=== PATIENT | male | born 1945 | race Caucasian/White ===

== ENCOUNTER 2019-06-12 16:39 | Inpatient (IN) | payer OTHER, MEDICARE ==
[~2019-06-12] VITALS: Ht 188 cm; Wt 113.7 kg
[2019-06-12] VITALS (7 sets, daily range): BP systolic 80–108; BP diastolic 23–58
[2019-06-12] MEDS ORDERED: SODIUM CHLORIDE 0.9% 1,000 ML IV ONE ×2 (17:12)
[2019-06-12] MEDS ORDERED: PANTOPRAZOLE 80 MG in SODIUM CHL 0.9% 60 ML IV ONE (17:15)
[2019-06-12 18:22] LABS: Basophils # (auto) 0.1 uL; Basophils % (auto) 0.7 % (0.0-2.0); Lymphocytes # (auto) 1.8 uL; Monocytes # (auto) 1.6 uL; Neutrophils % (auto) 80.3 % (37.0-80.0)
[2019-06-12 18:24] LABS: Eosinophils # (auto) 0.1 uL; Eosinophils % (auto) 0.3 % (0.0-7.0); Hematocrit 14.1 % (41.0-53.0); Lymphocytes % (auto) 9.7 % (10.0-50.0); Mean Corpuscular Hemoglobin 22.6 pg (28.0-32.0); Mean Corpuscular Hgb Conc. 29.4 g/dL (32.0-36.0); Mean Corpuscular Volume 76.9 fL (80.0-100.0); Neutrophils # (auto) 14.5 uL; Nucleated Red Blood Cells % 0.3 %; Platelet Count (auto) 712 10^3/uL (140-450); Red Blood Cells 1.83 10^6/uL (4.5-5.90); White Blood Cell 18.1 10^3/uL (4.4-10.8)
[2019-06-12] MEDS ORDERED: ETOMIDATE (2MG/ML) 20ML VIAL IV ONE ×2 (18:27→19:30)
[2019-06-12] MEDS ORDERED: SUCCINYLCHOLINE CHLORIDE 20 MG/ML 10ML VIAL IV ONE ×2 (18:27→19:30)
[2019-06-12 18:28] LABS: Red Cell Distribution Width 21.9 % (11.8-14.3)
[2019-06-12] MEDS ORDERED: MIDAZOLAM DRIP 50 mg/50mL 50 ML IV ONE (18:28)
[2019-06-12 18:31] LABS: Hemoglobin 4.1 g/dL (13.5-17.5)
[2019-06-12] MEDS: MIDAZOLAM DRIP 50 mg/50mL 50 ML IV SCH (18:33)
[2019-06-12 18:40] LABS: Anion Gap 13 (5-15); Blood Urea Nitrogen 36 mg/dL (7-18); Calcium 7.3 mg/dL (8.5-10.1); Carbon Dioxide 14 mmol/L (21-32); Chloride 105 mmol/L (98-107); Glucose 281 mg/dL (74-106); Sodium 132 mmol/L (136-145)
[2019-06-12 18:41] LABS: Alanine Aminotransferase 29 U/L (16-61); Aspartate Aminotransferase 28 U/L (15-37); BUN/Creatinine Ratio 17.1; GFR African American 40 mL/min; GFR Non-African American 33 mL/min
[2019-06-12 18:43] LABS: Partial Thromboplastin Time 39.9 sec (23.64-32.05)
[2019-06-12 18:44] LABS: Alkaline Phosphatase 114 U/L (45-117); Bilirubin, Total 0.2 mg/dL (0.2-1.0); Total Protein 6.3 g/dL (6.4-8.2)
[2019-06-12] MEDS ORDERED: PROPOFOL 100 ML IV ONE ×2 (18:47→18:48)
[2019-06-12 18:48] LABS: Lactic Acid w/Reflex 6.2 mmol/L (0.4-2.0)
[2019-06-12] MEDS: PROPOFOL 100 ML IV SCH (18:52)
[2019-06-12 18:55] LABS: INR 4.4 (0.9-1.15)
[2019-06-12] MEDS ORDERED: OCTREOTIDE ACETATE 100 MCG in SODIUM CHL 0.9% 50 ML IV ONE (19:00)
[2019-06-12] MEDS: fentaNYL Drip 2500mCg/250mlNS 250 ML IV SCH (19:15)
[2019-06-12 19:25] LABS: Potassium 5.9 mmol/L (3.5-5.1)
[2019-06-12] MEDS ORDERED: DEXTROSE (50%) 50ML SYRG IV ONE (19:30)
[2019-06-12] MEDS ORDERED: SODIUM BICARBONATE 8.4 % INJ 50ML VIAL IV ONE (19:30)
[2019-06-12] MEDS ORDERED: MORPHINE SULF INJ 2 MG/ML SYRINGE 1ML IV PRN ×2 (19:30→19:45)
[2019-06-12] MEDS ORDERED: ALBUTEROL SULF 2.5 MG/0.5ML(0.5%) NEB SOLN NEB ONE (19:30)
[2019-06-12] MEDS ORDERED: NITROGLYCERIN 0.4 MG SL TAB SL PRN (19:30)
[2019-06-12] MEDS ORDERED: InsuLIN REG 1unit/0.01ml Soln (100units/ml) IV ONE (19:30)
[2019-06-12] MEDS ORDERED: CALCIUM GLUC 4.65meq/50ml D5AE 50 ML IV ONE (19:30)
[2019-06-12] MEDS ORDERED: VANCOMYCIN PER PHARMACY 0 MG IV SCH (19:45)
[2019-06-12] MEDS ORDERED: NOREPINEPHRINE 8 MG/250ML KIT 250 ML IV ONE (20:27)
[2019-06-12] MEDS: NOREPINEPHRINE 8 MG/250ML KIT 250 ML IV SCH (20:30)
[2019-06-12] MEDS: IPRATROPIUM BROM 0.5 MG/2.5ML INH SOL NEB SCH (20:30)
[2019-06-12] MEDS: ALBUTEROL SULF 2.5 MG/0.5ML(0.5%) NEB SOLN NEB SCH (20:30)
[2019-06-12] MEDS ORDERED: VANCOMYCIN 1,500 MG in D5W 5% 250 ML IV ONE (20:30)
[2019-06-12] MEDS: SODIUM BICARBONATE 50ML VIAL 50 ML in SOD CHL 0.45% 1,000 ML IV SCH (21:00)
[2019-06-12] MEDS: OCTREOTIDE ACETATE 500 MCG in SODIUM CHL 0.9% 99 ML IV SCH (21:30)
[2019-06-12 23:27] LABS: BUN/Creatinine Ratio 15.9; Calcium 7.1 mg/dL (8.5-10.1)
[2019-06-12 23:41] LABS: Potassium 6.8 mmol/L (3.5-5.1)
[2019-06-13] VITALS (57 sets, daily range): BP systolic 83–134; BP diastolic 33–69
[2019-06-13] MEDS ORDERED: SODIUM ZIRCONIUM CYCL 10 GM PAK PO ONE ×5 (00:15→23:30)
[2019-06-13] MEDS ORDERED: InsuLIN REG 1unit/0.01ml Soln (100units/ml) IV ONE ×4 (00:15→23:30)
[2019-06-13] MEDS ORDERED: DEXTROSE (50%) 50ML SYRG IV ONE ×2 (00:15→23:30)
[2019-06-13] MEDS: IPRATROPIUM BROM 0.5 MG/2.5ML INH SOL NEB SCH ×4 (00:43→18:22)
[2019-06-13] MEDS: ALBUTEROL SULF 2.5 MG/0.5ML(0.5%) NEB SOLN NEB SCH ×4 (00:43→18:22)
[2019-06-13] MEDS: OCTREOTIDE ACETATE 500 MCG in SODIUM CHL 0.9% 99 ML IV SCH (05:19)
[2019-06-13 05:39] LABS: Basophils # (auto) 0.1 uL; Eosinophils # (auto) 0 uL; Neutrophils # (auto) 13.4 uL
[2019-06-13 05:42] LABS: Basophils % (auto) 0.4 % (0.0-2.0); Eosinophils % (auto) 0.1 % (0.0-7.0); Hematocrit 15.8 % (41.0-53.0); Lymphocytes # (auto) 3.1 uL; Lymphocytes % (auto) 17.4 % (10.0-50.0); Mean Corpuscular Hemoglobin 25.6 pg (28.0-32.0); Mean Corpuscular Hgb Conc. 32.4 g/dL (32.0-36.0); Mean Corpuscular Volume 79.2 fL (80.0-100.0); Monocytes # (auto) 1.4 uL; Monocytes % (auto) 7.7 % (0.0-12.0); Neutrophils % (auto) 74.4 % (37.0-80.0); Nucleated Red Blood Cells % 0.2 %; Platelet Count (auto) 504 10^3/uL (140-450); Red Cell Distribution Width 19.9 % (11.8-14.3)
[2019-06-13 05:54] LABS: Hemoglobin 5.1 g/dL (13.5-17.5); INR 2.44 (0.9-1.15); Partial Thromboplastin Time 34.5 sec (23.64-32.05)
[2019-06-13] MEDS: SODIUM BICARBONATE 50ML VIAL 50 ML in SOD CHL 0.45% 1,000 ML IV SCH ×3 (06:10→22:02)
[2019-06-13 06:15] LABS: BUN/Creatinine Ratio 17.2; Calcium 6.8 mg/dL (8.5-10.1); Potassium 5.4 mmol/L (3.5-5.1)
[2019-06-13] MEDS ORDERED: SODIUM BICARBONATE 8.4 % INJ 50ML VIAL IV ONE ×2 (06:15→23:30)
[2019-06-13] MEDS ORDERED: DEXTROSE (50%) 50ML SYRG IV PRN ×2 (07:15→16:30)
[2019-06-13] MEDS ORDERED: ALBUTEROL SULF 2.5 MG/0.5ML(0.5%) NEB SOLN NEB ONE ×2 (07:15→16:30)
--- NOTE | 2019-06-13 07:43 | NUR ---
Respiratory note: VT HAS BEEN INCREASED TO 600 PER LICENSED SURVEYOR CORBY. NEW VENT SETTINGS: RR 20, VT 600, PEEP 5, AND 30% FIO2.
[2019-06-13] MEDS: InsuLIN REG 1unit/0.01ml Soln (100units/ml) SC SCH ×4 (08:00→20:00)
[2019-06-13] MEDS: ACCU-CHEK COMFORT CURVE STRIP VI SCH ×3 (08:00→20:00)
[2019-06-13] MEDS: cefTRIAXone 1GM/50ML D5W 50 ML IV SCH (09:08)
[2019-06-13] MEDS: LINEZOLID 600MG/300ML 300 ML IV SCH ×2 (09:30→21:28)
[2019-06-13] MEDS ORDERED: PANTOPRAZOLE 80 MG in SODIUM CHL 0.9% 60 ML IV ONE (09:45)
[2019-06-13] MEDS: AZITHROMYCIN 500MG/ 250ML 250 ML IV SCH (10:17)
[2019-06-13 10:51] LABS: Urine Bacteria FEW /hpf (None Seen); Urine Blood 2+ /uL (Negative); Urine Hyaline Cast FEW /lpf (0 - 2); Urine Mucus FEW (None Seen); Urine Specific Gravity 1.016 (1.001-1.035); Urine WBC 5 /hpf (0 - 3)
[2019-06-13 11:04] LABS: Creatinine, Urine 90 mg/dL (30.0-125.0); Sodium Urine 30 mmol/L (40-220)
--- NOTE | 2019-06-13 12:40 | NUR ---
Respiratory note: PT TRANSPORTED TO ICU BED 102 WITHOUT INCIDENT. ETT REMAINED IN PLACE AND SECURED WITH A PAMELA. PT WAS VENTILATED VIA BMV WHILE BEING MONITORED WITH CONTINUOUS POX AND GRANULIZING MACHINE OPERATOR. PT PLACED BACK ONTO PREVIOUS VENT SETTINGS UPON ARRIVAL TO ICU 102.
[2019-06-13] MEDS: PANTOPRAZOLE 80 MG in SODIUM CHL 0.9% 60 ML IV SCH ×2 (12:57→19:45)
[2019-06-13 15:09] LABS: Basophils # (auto) 0.1 uL; Eosinophils # (auto) 0 uL; Eosinophils % (auto) 0.3 % (0.0-7.0); Monocytes # (auto) 1.3 uL; Nucleated Red Blood Cells % 0.1 %
[2019-06-13 15:10] LABS: Basophils % (auto) 0.5 % (0.0-2.0); Hematocrit 20.1 % (41.0-53.0); Lymphocytes # (auto) 2.1 uL; Lymphocytes % (auto) 11.8 % (10.0-50.0); Mean Corpuscular Hemoglobin 26.2 pg (28.0-32.0); Mean Corpuscular Hgb Conc. 33.2 g/dL (32.0-36.0); Mean Corpuscular Volume 78.9 fL (80.0-100.0); Monocytes % (auto) 7.2 % (0.0-12.0); Neutrophils # (auto) 14.6 uL; Neutrophils % (auto) 80.2 % (37.0-80.0); Platelet Count (auto) 503 10^3/uL (140-450); Red Blood Cells 2.55 10^6/uL (4.5-5.90); Red Cell Distribution Width 19.1 % (11.8-14.3); White Blood Cell 18.2 10^3/uL (4.4-10.8)
[2019-06-13 15:23] LABS: Hemoglobin 6.7 g/dL (13.5-17.5)
[2019-06-13 15:29] LABS: BUN/Creatinine Ratio 19.6; Calcium 6.6 mg/dL (8.5-10.1)
[2019-06-13] MEDS: PANTOPRAZOLE 40 MG/10 ML VIAL INJ IV SCH ×2 (15:30→22:00)
[2019-06-13] MEDS: MIDAZOLAM DRIP 50 mg/50mL 50 ML IV SCH ×3 (15:39→23:08)
[2019-06-13 15:45] LABS: Bilirubin, Total 1.2 mg/dL (0.2-1.0); Total Protein 5.5 g/dL (6.4-8.2)
[2019-06-13] MEDS: NOREPINEPHRINE 8 MG/250ML KIT 250 ML IV SCH ×2 (15:48→22:04)
[2019-06-13 16:05] LABS: Potassium 5.8 mmol/L (3.5-5.1)
[2019-06-13] MEDS ORDERED: CALCIUM GLUC 4.65meq/50ml D5AE 50 ML IV ONE ×2 (16:30→23:30)
[2019-06-13] MEDS: PROPOFOL 100 ML IV SCH (19:40)
[2019-06-13] MEDS: fentaNYL Drip 2500mCg/250mlNS 250 ML IV SCH (19:40)
--- NOTE | 2019-06-13 20:00 | NUR ---
ADMITTED WITH RESPIRATORY FAILURE, SEPSIS, GI BLEED , FAILURE TO THRIVE. PLACED IN CONTACT ISOLATION FOR VRE URINE. PLAN: NOT TO CPAP UNTIL THE ILEUS IS RESOLVED. PLACED BACK ON DIPRIVAN AFTER BEING OFF SEDATION FOR 2 DAYS. PATIENT IS ABLE TO GRIMACE AND MOVE EXTREMITIES, BUT IS LESS ACTIVE. SBP IS MORE UNDER CONTROL. ETT TO VENTILATOR. NO VENT CHANGES TODAY. OGT TO LIS. SMALL AMOUNT OF GOLD SECRETIONS. PATENCY CHECKED. FLUSHED OGT. + WEAK COUGH. SMALL AMOUNT OF CLOUDY SECRETIONS FROM THE ETT. LUNGS CLEAR. ABDOMEN ROUND AND SOFT. MARTÍNEZ IN PLACE. DRAINING CLEAR YELLOW LIQUID IV ACCESS IS A RIJ TRIPLE LUMEN CATHETER. SITE IS CLEAN AND DRY WITH A CURRENT DRESSING . TEMP 99.2. ATRIAL FIB CONTROLLED RATE. SBP 120-130. HAS 3+ PITTING EDEMA IN ARMS AND LEGS. MULTIPLE SKIN ISSUES. HEELS OFF BED. MAINTENANCE FLUID AT 50CC/HR. TPN ( 2ND DAY) AT 60CC/HR . AMIODARONE DRIP .5. NO TITRATION . SEDATION: DIPRIVAN. RECEIVED K PHOS AND MAGNESIUM REPLACEMENT TODAY.
--- NOTE | 2019-06-13 20:00 | NUR ---
ADMITTED WITH GI BLEED, HYPERKALEMIA, HYPOTENSION, LOW NA BICARB. 5TH UPC GOING. LAST HG 6.7. PREVIOUSLY RECIEVED 2UNITS OF FFP. ETT TO VENTILATOR. OGT TO LIS. APPROXIMATELY 100CC OF BROWN LIQUID IN CONTAINER. ORAL CARE SHOWED OLD BROWN SECRETIONS. ETT SECRETIONS : THICK CLOUDY, SMALL AMOUNT. PRAFUL . BOTH EYES HAVE RELAXED LATERALLY. HAS A RIJ TLC WITH CURRENT DRESSING. PROTONIX AND OCTREOTIDE HAVE DISCONTINUED. LUNGS CLEAR. ABDOMEN ROUND AND SOFT. MARTÍNEZ IN PLACE DRAINING CLEAR YELLOW LIQUID TO DOWN DRAIN BAG. OBESE. ALL EXTREMITIES ARE EQUALLY WARM. PULSES PALPABLE. ACCUCHECK 372. HAS A BICARB DRIP AT 100CC/HR. SEDATION: FENTANYL, DIPRIVAN AND VERSED. VASOPRESSOR: LEVOPHED.
--- NOTE | 2019-06-13 20:01 | NUR ---
PREVIOUS NOTE: MISTAKEN ENTRY
--- NOTE | 2019-06-13 21:00 | NUR ---
ZYVOX GOING IN A SEPERATE LINE.
--- NOTE | 2019-06-13 22:00 | NUR ---
FIO2 50%
--- NOTE | 2019-06-13 22:00 | NUR ---
REPOSITIONED. ORAL CARE. SUCTIONED ETT FOR SMALL AMOUNT OF CLOUDY SECRETIONS. SACRAL FOLD RED. NO HEEL BREAKDOWN. LEFT AC IV LEAKING. REMOVED IV. 2200 REPEAT LABS SENT.
[2019-06-13 22:20] LABS: Basophils # (auto) 0.1 uL; Eosinophils # (auto) 0.1 uL; Mean Corpuscular Volume 79.2 fL (80.0-100.0); Nucleated Red Blood Cells % 0.1 %
[2019-06-13 22:22] LABS: Basophils % (auto) 0.5 % (0.0-2.0); Eosinophils % (auto) 0.5 % (0.0-7.0); Hematocrit 21.9 % (41.0-53.0); Hemoglobin 7.3 g/dL (13.5-17.5); Lymphocytes # (auto) 1.7 uL; Lymphocytes % (auto) 8.8 % (10.0-50.0); Mean Corpuscular Hemoglobin 26.4 pg (28.0-32.0); Mean Corpuscular Hgb Conc. 33.4 g/dL (32.0-36.0); Monocytes # (auto) 1.3 uL; Monocytes % (auto) 6.8 % (0.0-12.0); Neutrophils % (auto) 83.4 % (37.0-80.0); Platelet Count (auto) 519 10^3/uL (140-450); Red Blood Cells 2.77 10^6/uL (4.5-5.90); Red Cell Distribution Width 19.1 % (11.8-14.3); White Blood Cell 19.2 10^3/uL (4.4-10.8)
[2019-06-13 22:38] LABS: BUN/Creatinine Ratio 18.8; Calcium 7.1 mg/dL (8.5-10.1)
[2019-06-13 22:42] LABS: Potassium 5.7 mmol/L (3.5-5.1)
--- NOTE | 2019-06-13 22:47 | NUR ---
temp 100.4 rectal. ice bag to bag of neck
--- NOTE | 2019-06-13 22:50 | NUR ---
CALL PLACED TO HOSPITALIST TO REPORT THE 2199 LAB RESULTS. K 5.7, HG 7.3 CREATININE AND BUN ARE DECREASING GRADUALLY.
--- NOTE | 2019-06-13 23:19 | NUR ---
ASHLEY HINES RETURNED THE CALL . ORDERS RECEIVED . D50, INSULIN, CA GLUC, NA BICARB AND LOKELMA TO BE GIVEN.
[2019-06-14] VITALS (85 sets, daily range): BP systolic 90–147; BP diastolic 43–66
--- NOTE | 2019-06-14 | NUR ---
COCKTAIL OF INSULIN, D50, CALCIUM GLUCONATED, NA BICARB AND LOKELMA GIVEN. AM LABS TO CHECK LEVELS. REPOSITIONED TO BACK. NOT MOVING EXTREMITIES. NO COUGH OR GAG. PUPILS SLUGGISH AND BOTH EYES H AVE DEVIATED LATERALLY. ABDOMEN SOFT. DARK BROWN THROUGH NGT IN SMALL AMOUNTS. IVS PATENT. MARTÍNEZ IN PLACE AND DRAINING CLEAR YELLOW LIQUID. SINUS TACHYCARDIA. FOLLOWING THE VENTILATOR RATE OF 20. TEMP IS DOWN TO 100 RECTALLY. FIO2 50%
[2019-06-14] MEDS: ACCU-CHEK COMFORT CURVE STRIP VI SCH ×7 (00:09→20:23)
[2019-06-14] MEDS: IPRATROPIUM BROM 0.5 MG/2.5ML INH SOL NEB SCH ×4 (00:15→18:17)
[2019-06-14] MEDS: ALBUTEROL SULF 2.5 MG/0.5ML(0.5%) NEB SOLN NEB SCH ×4 (00:15→18:17)
[2019-06-14] MEDS: InsuLIN REG 1unit/0.01ml Soln (100units/ml) SC SCH ×6 (00:22→20:23)
[2019-06-14] MEDS: PROPOFOL 100 ML IV SCH ×3 (01:52→16:00)
[2019-06-14] MEDS: NOREPINEPHRINE 8 MG/250ML KIT 250 ML IV SCH ×2 (01:53→08:26)
[2019-06-14] MEDS: MIDAZOLAM DRIP 50 mg/50mL 50 ML IV SCH ×3 (01:53→11:10)
--- NOTE | 2019-06-14 03:00 | NUR ---
CHG BATH DONE
--- NOTE | 2019-06-14 04:00 | NUR ---
REPOSITIONED TO BACK. LUNGS CLEAR. NSR 99-105 SINUS TACHY. GOOD URINE OUTPUT.
[2019-06-14 04:31] LABS: Hemoglobin 7.5 g/dL (13.5-17.5); Mean Corpuscular Hemoglobin 26.9 pg (28.0-32.0)
[2019-06-14 04:32] LABS: Hematocrit 21.8 % (41.0-53.0); Mean Corpuscular Hgb Conc. 34.1 g/dL (32.0-36.0); Mean Corpuscular Volume 78.7 fL (80.0-100.0); Platelet Count (auto) 542 10^3/uL (140-450); Red Blood Cells 2.77 10^6/uL (4.5-5.90); Red Cell Distribution Width 19.4 % (11.8-14.3); White Blood Cell 18.7 10^3/uL (4.4-10.8)
[2019-06-14 04:45] LABS: Basophils % (manual) 0 (0.0-2.0); Blast Cells 0; Eosinophils % (manual) 0 (0-7); Myelocytes % 0; Promyelocytes % 0; Reactive Lymphocytes 0
[2019-06-14 04:51] LABS: BUN/Creatinine Ratio 19.3; Calcium 7.6 mg/dL (8.5-10.1); Potassium 5.1 mmol/L (3.5-5.1)
[2019-06-14 04:53] LABS: INR 1.34 (0.9-1.15); Partial Thromboplastin Time 28.2 sec (23.64-32.05)
--- NOTE | 2019-06-14 06:32 | NUR ---
TITRATING LEVOPHED DOWN
--- NOTE | 2019-06-14 07:30 | NUR ---
REPORT REPORT RECEIVED FROM MARNIE RNREY. BEDSIDE CHECK DONE.
--- NOTE | 2019-06-14 07:52 | NUR ---
ASSESSMENT PT RESTING IN BED , SEDATED AND ON THE VENTILATOR. NO SPONTANEOUS MOVEMENT NOTED BUT DOES WITHDRAW TO PAINFUL STIMULI. VENT SETTINGS: 8 FR ETT/26 AT THE LIP, AC 20, TV 600, 30% FIO2 AND PEEP OF 5. LUNGS CLEAR THROUGHOUT. SUCTIONED FOR SMALL AMOUNT OF THIN CLEAR FLUID ORALLY AND ETT. TELE ATRIAL FIB WITH OCC PACED BEATS, APPROX 82 , WITH BBB AND ELEVATED ST IN LEADS II, III, AVF AND V. PALPABLE PULSES TO ALL EXTREMITIES. SCDS TO BLE. ABD SOFT WITH HYPOACTIVE BOWEL SOUNDS. OGT WITH PLACEMENT VERIFIED AND TO LIS. LT OSEGUERA FLUID DRAINING. . MARTÍNEZ CATHETER DRAINING CLEAR YELLOW URINE. TURNED FOR COMFORT TO HIS RIGHT SIDE. UPPER INTRAGLUTEAL FOLD WITH DARK RED AREA SURROUNDED BY PINK, SLIGHTLY PEELING SKIN. APPEARS TO BE A SDTI. CONTINUE TO MONITOR.
[2019-06-14 08:23] LABS: Band Neutrophils % (manual) 8; Lymphocytes % (manual) 9 (10.0-50.0); Metamyelocytes % 1; Monocytes % (manual) 4 (0-12)
[2019-06-14] MEDS: SODIUM CHLORIDE 0.9% 1,000 ML IV SCH ×2 (08:34→21:20)
[2019-06-14] MEDS: cefTRIAXone 1GM/50ML D5W 50 ML IV SCH (08:41)
[2019-06-14] MEDS ORDERED: DEXTROSE (50%) 50ML SYRG IV PRN (08:45)
--- NOTE | 2019-06-14 09:00 | NUR ---
SEDATION VACATION WILL NOT TOTALLY WAKE PT HE MAY HAVE EGD THIS AM Addendum: 06/14/19 at 1357 by Yamileth Leslie RN Amended: Links added.
--- NOTE | 2019-06-14 09:30 | NUR ---
MD/PHONE SPOKE WITH DR VERNON , BY PHONE, AND UPDATED HIM ON THE PT'S CURRENT CONDITION INCLUDING MOST RECENT LABS. MD ORDERING FOR EGD TODAY. HE WILL CONTACT OR TO ARRANGE.
--- NOTE | 2019-06-14 09:35 | NUR ---
PT'S AND DAUGHTER AT THE BEDSIDE , UPDATED ON THE PT'S CURRENT CONDITION AND LABS AND ALSO DR VERNON PLANNING FOR EGD.
[2019-06-14] MEDS: PANTOPRAZOLE 40 MG/10 ML VIAL INJ IV SCH ×2 (09:59→21:57)
[2019-06-14] MEDS: LINEZOLID 600MG/300ML 300 ML IV SCH ×2 (10:00→21:05)
[2019-06-14] MEDS ORDERED: EPINEPHrine HCL 1 MG/10 ML SYRG ONE (10:25)
--- NOTE | 2019-06-14 11:45 | NUR ---
EGD COMPLETED AND PER DR VERNON: EGD SHOWED A SMALL ULCER IN THE JEJUNUM, NOT ACTIVELY BLEEDING. HE DOES WANT THE NGT RE-INSERTED.
[2019-06-14] MEDS: AZITHROMYCIN 500MG/ 250ML 250 ML IV SCH (12:09)
--- NOTE | 2019-06-14 12:15 | NUR ---
NGT RE-INSERTED ORALLY , BY HOME WHITTAKER. TOLERATED WELL BY PT. Addendum: 06/14/19 at 1340 by Yamileth Leslie RN ACCUCHECK OF 391 AND PT GIVEN 20 UNITS REGULAR INSULIN SQ.
--- NOTE | 2019-06-14 13:29 | NUR ---
FAMILY LEAVING FOR NOW AND WANT TO BE CALLED IF ANY OTHER MDS COME IN.
--- NOTE | 2019-06-14 14:35 | NUR ---
WOUND CARE NOTE: Wound care consult received from nursing. Patient is a 74 yo male admitted for acute respiratory failure. Patient with a history of diabetes, hypertension, chronic anemia, peripheral neuropathy and peripheral arterial disease. Patient is currently intubated and sedated. Patient with no signs or symptoms of pain. Last Fransico score is 10. Patient seen with bedside RNYamileth. Reviewed photos taken by nursing on admission. Patient noted to have a pressure injury to coccyx/sacrum area measuring 2x2 cm and is consistent with DTI. Deep purple/maroon color and intact skin. No other wounds noted. RECOMMENDATIONS: Dietary consult; Turn q2hrs; Nursing to cleanse sacrum/coccyx wound with mild soap and water, pat dry, apply ZGUARD BID/PRN soiling, cover with sacral OPTIFOAM GENTLE dressing; wound care team to follow. Addendum: 06/14/19 at 1530 by MELQUIADES LEAL RN Amended: Links added.
--- NOTE | 2019-06-14 15:31 | NUR ---
PT SEEN BY DR AYERS. CONSULT ORDERED WITH DR GAYTAN.
--- NOTE | 2019-06-14 17:00 | NUR ---
PT SEEN AND EXAMINED BY DR GAYTAN.
--- NOTE | 2019-06-14 19:30 | NUR ---
REPORT GIVEN TO STEM ROLLER RNREY.
--- NOTE | 2019-06-14 20:00 | NUR ---
ADMITTED ON 06/12/2019 WITH RESPIRATORY FAILURE, GI BLEED, HG OR 4.1 AND HYPOTENSION. HAS RECEIVED A TOTAL OF 5 UPC AND 2 FFP FOR ELEVATED COAGULATION TESTS. NOT MOVING. NEGATIVE BLINK, COUGH OR GAG. LUNGS COARSE. SUCTIONING A LARGE AMOUNT OF CREAMY SECRETIONS FROM THE ETT. RIJ TLC WITH CURRENT DRESSING AND BIOPATCH. ABDOMEN SOFT AND ROUND. NO BM TONIGHT. MARTÍNEZ IN PLACE. MARTÍNEZ DRAINING AN ADEQUATE AMOUNT OF YELLOW LIQUID WITH SEDIMENT. SACRAL DTI. BICARB DRIP DC'D TODAY. SEDATION : FENTANYL AND VERSED. DECREASING THOSE TONIGHT. LEVOPHED: DECREASING. OGT DRAINING COFFEE GROUND FLUID. IT IS SO THICK, I HAVE HAD TO LAVAGE SEVERAL TIMES TO KEEP IT FLOWING. SINUS RHYTHM. NO ECTOPY. DCD THE RIGHT HAND IV, IT WAS LEAKING. HAS A RIGHT FOREARM IV AND A RIGHT IJ TLC ALL WITH CURRENT DRESSING. SITES SHOW NO REDNESS OR SWELLING
[2019-06-14] MEDS: fentaNYL Drip 2500mCg/250mlNS 250 ML IV SCH (20:22)
--- NOTE | 2019-06-14 22:00 | NUR ---
KYREE BAGLEY DC'D YESTERDAY, NOW GIVING IT IVP. NO BM YET. OGT DRAINING COFFEE GROUND COLOR LIQUID. LAVAGED THE OGT TO KEEP THE FLOW GOING.
[2019-06-15] VITALS (99 sets, daily range): BP systolic 98–133; BP diastolic 46–62
--- NOTE | 2019-06-15 | NUR ---
REPOSITIONED. SUCTIONING LARGE AMOUNT OF CREAMY SECRETIONS FROM THE ETT. DECREASING LEVOPHED AND SEDATION. SINUS RHYTHM. NO ECTOPY
[2019-06-15] MEDS: ACCU-CHEK COMFORT CURVE STRIP VI SCH ×7 (00:14→20:00)
[2019-06-15] MEDS: InsuLIN REG 1unit/0.01ml Soln (100units/ml) SC SCH ×6 (00:14→20:00)
[2019-06-15] MEDS: IPRATROPIUM BROM 0.5 MG/2.5ML INH SOL NEB SCH ×4 (00:38→18:19)
[2019-06-15] MEDS: ALBUTEROL SULF 2.5 MG/0.5ML(0.5%) NEB SOLN NEB SCH ×4 (00:38→18:19)
--- NOTE | 2019-06-15 02:00 | NUR ---
NO CHANGE. DECREASING LEVOPHED. SINUS RHYTHM NO ECOTOPY. STILL NOT MOVING . NO BLINK , GAG OR COUGH. OGT SECRETIONS ARE THICK. LAVAGED THE OGT TO KEEP IT FLOWING. CREAMY ETT SECRETIONS.
--- NOTE | 2019-06-15 04:00 | NUR ---
CHG BATH. LOTION TO SKIN. TURNED THE PATIENT AND HE STARTED HAVING A LARGE BURGUNDY STOOL. PAD CHANGED TWICE.
[2019-06-15 04:01] LABS: Platelet Count (auto) 458 10^3/uL (140-450); Red Cell Distribution Width 19.8 % (11.8-14.3)
[2019-06-15 04:03] LABS: Hematocrit 19.8 % (41.0-53.0); Mean Corpuscular Hemoglobin 27.4 pg (28.0-32.0); Mean Corpuscular Hgb Conc. 34.3 g/dL (32.0-36.0); Mean Corpuscular Volume 79.9 fL (80.0-100.0); Red Blood Cells 2.48 10^6/uL (4.5-5.90)
[2019-06-15 04:16] LABS: Calcium 7.7 mg/dL (8.5-10.1); Potassium 4.7 mmol/L (3.5-5.1)
[2019-06-15 04:57] LABS: Hemoglobin 6.8 g/dL (13.5-17.5)
[2019-06-15 04:59] LABS: Basophils % (manual) 0 (0.0-2.0); Blast Cells 0; Metamyelocytes % 0; Myelocytes % 0; Promyelocytes % 0; Reactive Lymphocytes 0
--- NOTE | 2019-06-15 05:11 | NUR ---
HG 6.8. COFFEE GROUND COMING FROM THE T.
--- NOTE | 2019-06-15 05:23 | NUR ---
CALL PLACED TO DR AYERS TO REPORT THE HG OF 6.7
--- NOTE | 2019-06-15 05:31 | NUR ---
DR JACKSON RETURNED THE CALL. ORDER FOR ONE UNIT OF PACKED CELLS
--- NOTE | 2019-06-15 05:45 | NUR ---
SPOKE WITH BLOOD BANK. THEY ARE BEGINNING TO SET IT UP
[2019-06-15 06:53] LABS: Band Neutrophils % (manual) 3; Eosinophils % (manual) 4 (0-7); Lymphocytes % (manual) 16 (10.0-50.0); Monocytes % (manual) 6 (0-12)
[2019-06-15] MEDS: PROPOFOL 100 ML IV SCH ×2 (06:57)
--- NOTE | 2019-06-15 07:23 | NUR ---
US GOING TO GET THE BLOOD FROM BLOOD BANK
--- NOTE | 2019-06-15 07:30 | NUR ---
REPORT RECEIVED FROM WRAPPER COUNTER NURSE. PATIENT RESTING IN BED AT THIS TIME. RESPIRATIONS EVEN AND UNLABORED, INTUBATED AND SEDATED. BED IN LOW POSITION. WILL CONTINUE TO MONITOR.
--- NOTE | 2019-06-15 07:54 | NUR ---
START PRBC TRANSFUSION. WILL CONTINUE TO MONITOR.
[2019-06-15] MEDS: cefTRIAXone 1GM/50ML D5W 50 ML IV SCH (08:27)
--- NOTE | 2019-06-15 09:04 | NUR ---
DR VERNON AT BEDSIDE TO ASSESS PATIENT AND DISCUSS PLAN OF CARE WITH FAMILY. MD MADE AWARE OF HGB AND CURRENT TRANSFUSION. PER MD ADMINISTER GOLYTELY ORDERED VIA NGT, PATIENT TO HAVE EGD AND COLONOSCOPY TOMORROW.
[2019-06-15] MEDS ORDERED: GOLYTELY 4L KIT PO ONE (09:15)
--- NOTE | 2019-06-15 09:27 | NUR ---
DR ORTIZ AT BEDSIDE TO ASSESS PATIENT AND DISCUSS PLAN OF CARE. NO NEW ORDERS AT THIS TIME.
[2019-06-15] MEDS: LINEZOLID 600MG/300ML 300 ML IV SCH ×2 (09:52→22:43)
[2019-06-15] MEDS: PANTOPRAZOLE 40 MG/10 ML VIAL INJ IV SCH ×2 (10:03→22:43)
[2019-06-15] MEDS: SODIUM CHLORIDE 0.9% 1,000 ML IV SCH (11:28)
[2019-06-15] MEDS: AZITHROMYCIN 500MG/ 250ML 250 ML IV SCH (11:36)
--- NOTE | 2019-06-15 11:38 | NUR ---
COMPLETED PRBC TRANSFUSION, NO NOTED REACTION. WILL CONTINUE TO MONITOR.
--- NOTE | 2019-06-15 13:42 | NUR ---
Nutrition Assessment/consult Notes please se attached link for complete assessment Est. Needs ABW 104 [id number] kcal (23-25 kcal/kgBW), 83-104 gms pro (0.8-1.0 gms/kgBW r/t elev RFT severe hypoalb wounds). Will continue to monitor pertinent labs and reassess nutrient need prn Addendum: 06/15/19 at [address] Amended: Links added.
[2019-06-15] MEDS ORDERED: AMLO5TAB15 PO (13:46)
[2019-06-15] MEDS ORDERED: FURO1TAB33 PO (13:46)
[2019-06-15] MEDS ORDERED: CHOL100083 OR (13:46)
[2019-06-15] MEDS ORDERED: GEMF600T7 PO (13:46)
[2019-06-15] MEDS ORDERED: SERT-274 PO (13:46)
[2019-06-15] MEDS ORDERED: SERDISK IN (13:46)
[2019-06-15] MEDS ORDERED: FOLI1TAB6 PO (13:46)
[2019-06-15] MEDS ORDERED: NIAC500T71 PO (13:46)
[2019-06-15] MEDS ORDERED: BACL10TA PO (13:46)
[2019-06-15] MEDS ORDERED: OME20GT GT (13:46)
[2019-06-15] MEDS ORDERED: FERR1TAB5 PO (13:46)
[2019-06-15] MEDS ORDERED: GLIP5TAB12 PO (13:46)
[2019-06-15] MEDS ORDERED: BECL80AE11 IN (13:46)
[2019-06-15] MEDS ORDERED: INSREG3 SC (13:46)
[2019-06-15] MEDS ORDERED: POTA10TA79 PO (13:46)
[2019-06-15] MEDS ORDERED: METF-371 PO (13:46)
[2019-06-15] MEDS ORDERED: GABA300C10 PO (13:46)
[2019-06-15] MEDS ORDERED: MAGN400T5 PO (13:46)
[2019-06-15] MEDS ORDERED: BRIM0.2S2 OP (13:46)
[2019-06-15] MEDS ORDERED: HYDR-392 PO (13:46)
[2019-06-15 14:13] LABS: Hematocrit 21.3 % (41.0-53.0); Hemoglobin 7.1 g/dL (13.5-17.5)
--- NOTE | 2019-06-15 14:35 | NUR ---
DR GAYTAN AT BEDSIDE TO ASSESS PATIENT AND DISCUSS PLAN OF CARE. ALL ORDERS NOTED IN CHART.
--- NOTE | 2019-06-15 15:15 | NUR ---
PATIENT PLACED ON AIR MATTRESS.
--- NOTE | 2019-06-15 16:08 | NUR ---
SECOND UNIT OF PRBC STARTED PER DR GAYTAN ORDER. PATIENT TOLERATING WELL. WILL CONTINUE TO MONITOR.
--- NOTE | 2019-06-15 18:08 | NUR ---
DR AYERS AT BEDSIDE TO ASSESS PATIENT AND DISCUSS AND DISCUSS PLAN OF CARE. PER MD START PATIENT ON LANTUS 20UNITS SQ HS FOR ELEVATED BLOOD SUGARS. ALL ORDERS NOTED IN CHART.
--- NOTE | 2019-06-15 18:43 | NUR ---
2ND UNIT OF PRBC COMPLETED WITH NO SINGS OF REACTION NOTED.
[2019-06-15] MEDS: fentaNYL Drip 2500mCg/250mlNS 250 ML IV SCH (18:51)
[2019-06-15] MEDS: MIDAZOLAM DRIP 50 mg/50mL 50 ML IV SCH (18:51)
--- NOTE | 2019-06-15 20:47 | NUR ---
PT DAUGHTER CALLED PT DAUGHTER PROVIDED PW AND WAS UPDATED ON PTS CURRENT STATUS. ALL QUESTIONS AND CONCERNS ARE ADDRESSED AT THIS TIME.
[2019-06-15] MEDS: INSULIN LANTUS (GLARGINE) 1 /0.01ml (100units/ml) SC SCH (22:00)
[2019-06-15] MEDS: NOREPINEPHRINE 8 MG/250ML KIT 250 ML IV SCH (22:01)
[2019-06-15 22:02] LABS: Hematocrit 23.8 % (41.0-53.0)
[2019-06-16] VITALS (103 sets, daily range): BP systolic 100–164; BP diastolic 39–77
[2019-06-16] MEDS: IPRATROPIUM BROM 0.5 MG/2.5ML INH SOL NEB SCH ×5 (00:06→23:55)
[2019-06-16] MEDS: ALBUTEROL SULF 2.5 MG/0.5ML(0.5%) NEB SOLN NEB SCH ×5 (00:06→23:55)
[2019-06-16] MEDS: SODIUM CHLORIDE 0.9% 1,000 ML IV SCH (00:20)
[2019-06-16] MEDS: PROPOFOL 100 ML IV SCH ×4 (01:12→22:00)
--- NOTE | 2019-06-16 01:30 | NUR ---
LRG BM PT HAD A LG BM ESTIMATED 300ML DARK BROWNISH REDDISH LIQUID STOOL. PT CLEANED, BEDDING CHANGED. PT TOLERATED CARE, VS STABLE, NO SS OF DISTRESS NOTED AT THIS TIME
[2019-06-16] MEDS: InsuLIN REG 1unit/0.01ml Soln (100units/ml) SC SCH ×6 (04:00→22:10)
[2019-06-16] MEDS: ACCU-CHEK COMFORT CURVE STRIP VI SCH ×6 (04:00→22:10)
[2019-06-16 04:06] LABS: BUN/Creatinine Ratio 26.7; Calcium 7.5 mg/dL (8.5-10.1); Potassium 4.1 mmol/L (3.5-5.1)
--- NOTE | 2019-06-16 07:25 | NUR ---
REPORT RECEIVED FROM SUPERVISOR BOILERMAKING SHOP NURSE. PATIENT RESTING IN BED AT THIS TIME. RESPIRATIONS EVEN AND UNLABORED, INTUBATED AND SEDATED. NO SIGNS OF ACUTE DISTRESS NOTED. BED IN LOW POSITION. WILL CONTINUE TO MONITOR.
[2019-06-16] MEDS ORDERED: SODIUM CHLORIDE 0.9% 1,000 ML IV SCH (08:00)
[2019-06-16] MEDS: cefTRIAXone 1GM/50ML D5W 50 ML IV SCH (09:21)
[2019-06-16 09:38] LABS: Hematocrit 23.5 % (41.0-53.0); Red Blood Cells 2.88 10^6/uL (4.5-5.90); White Blood Cell 12.3 10^3/uL (4.4-10.8)
[2019-06-16 09:42] LABS: Mean Corpuscular Hemoglobin 27.7 pg (28.0-32.0); Mean Corpuscular Hgb Conc. 33.9 g/dL (32.0-36.0); Mean Corpuscular Volume 81.7 fL (80.0-100.0); Platelet Count (auto) 394 10^3/uL (140-450); Red Cell Distribution Width 19.1 % (11.8-14.3)
[2019-06-16 09:52] LABS: Basophils % (manual) 0 (0.0-2.0); Blast Cells 0; INR 1.03 (0.9-1.15); Metamyelocytes % 0; Myelocytes % 0; Promyelocytes % 0; Reactive Lymphocytes 0
[2019-06-16] MEDS: LINEZOLID 600MG/300ML 300 ML IV SCH ×2 (10:02→22:10)
[2019-06-16 11:02] LABS: Band Neutrophils % (manual) 5; Eosinophils % (manual) 1 (0-7); Lymphocytes % (manual) 7 (10.0-50.0); Monocytes % (manual) 3 (0-12)
[2019-06-16] MEDS: AZITHROMYCIN 500MG/ 250ML 250 ML IV SCH (11:22)
[2019-06-16] MEDS: PANTOPRAZOLE 40 MG/10 ML VIAL INJ IV SCH ×2 (11:22→22:10)
[2019-06-16] MEDS ORDERED: EPINEPHrine HCL 1 MG/10 ML SYRG ONE (11:26)
--- NOTE | 2019-06-16 11:45 | NUR ---
DR VERNON AT BEDSIDE TO PERFORM EGD AND COLONOSCOPY.
[2019-06-16] MEDS: MIDAZOLAM DRIP 50 mg/50mL 50 ML IV SCH (18:51)
[2019-06-16] MEDS: fentaNYL Drip 2500mCg/250mlNS 250 ML IV SCH (18:51)
--- NOTE | 2019-06-16 20:00 | NUR ---
SHIFT OPENING NOTE RECEIVED PATIENT SEDATED AND INTUBATED. ON FENTANYL AT 25, PROPOFOL AT 30. ON VENT WITH SETTINGS AC 20, TV 600, FIO2 35%, PEEP 5. NG TUBE TO LIS. MARTÍNEZ CATH DRAINING YELLOW URINE TO GRAVITY. ON AIR MATTRESS. REPOSITIONED FOR COMFORT. RIJ 3 LUMEN NOTED INFUSING SEDATIONS AND NS. PHYSICAL ASSESSMENT COMPLETED, SEE INTERVENTIONS. WILL CLOSELY MONITOR.
[2019-06-16] MEDS: NOREPINEPHRINE 8 MG/250ML KIT 250 ML IV SCH (22:01)
[2019-06-16] MEDS: INSULIN LANTUS (GLARGINE) 1 /0.01ml (100units/ml) SC SCH (22:11)
[2019-06-17] VITALS (103 sets, daily range): BP systolic 114–171; BP diastolic 52–91
[2019-06-17] MEDS: InsuLIN REG 1unit/0.01ml Soln (100units/ml) SC SCH ×6 (00:21→20:00)
[2019-06-17] MEDS: ACCU-CHEK COMFORT CURVE STRIP VI SCH ×6 (00:21→20:14)
--- NOTE | 2019-06-17 03:00 | NUR ---
MORNING HYGIENE CARE FULL BED BATH PERFORMED WITH CHG WIPES. GOWN CHANGED. PATIENT NOTED TO HAVE HAD A WATERY BM. JOCELYN CARE PERFORMED. FULL LINEN CHANGE. ORAL CARE DONE. FLEXISEAL PLACED DUE TO INCREASED IN DIARRHEA AND TO PREVENT SKIN BREAKDOWN. PATIENT REPOSITIONED FOR COMFORT. TOLERATED IT WELL.
[2019-06-17 04:19] LABS: Calcium 7.6 mg/dL (8.5-10.1)
[2019-06-17 04:27] LABS: Potassium 2.7 mmol/L (3.5-5.1)
--- NOTE | 2019-06-17 04:37 | NUR ---
CRITICAL K OF 2.7 SPOKE WITH MD Kayla ALCANTAR. NEW ORDERS OBTAINED FOR K RIDER 20 MEQ X3.
[2019-06-17] MEDS: POTASSIUM CHL 20MEQ/100ML 100 ML IV SCH ×5 (05:40→21:30)
[2019-06-17] MEDS: ALBUTEROL SULF 2.5 MG/0.5ML(0.5%) NEB SOLN NEB SCH ×3 (06:14→18:34)
[2019-06-17] MEDS: IPRATROPIUM BROM 0.5 MG/2.5ML INH SOL NEB SCH ×3 (06:14→18:34)
--- NOTE | 2019-06-17 07:20 | NUR ---
OPENING NOTE SHIFT REPORT RECEIVED AND ASSUMED CARE OF PT FROM GERRY BHAT
--- NOTE | 2019-06-17 07:30 | NUR ---
END OF SHIFT REPORT GIVEN AND CARE ENDORSED TO SEDRICK BHAT.
[2019-06-17] MEDS: cefTRIAXone 1GM/50ML D5W 50 ML IV SCH (09:34)
[2019-06-17] MEDS: PANTOPRAZOLE 40 MG/10 ML VIAL INJ IV SCH ×2 (09:34→21:33)
[2019-06-17] MEDS: LINEZOLID 600MG/300ML 300 ML IV SCH ×2 (09:35→21:38)
--- NOTE | 2019-06-17 10:00 | NUR ---
DR. HEALY AT BEDSIDE ORDERS RECEIVED
[2019-06-17] MEDS: AZITHROMYCIN 500MG/ 250ML 250 ML IV SCH (10:34)
--- NOTE | 2019-06-17 11:00 | NUR ---
DR. GASTELUM AT BEDSIDE ORDERS RECEIVED
[2019-06-17] MEDS: SOD CHL 0.45% WITH 20MEQ KCL 1,000 ML IV SCH (11:04)
[2019-06-17] MEDS: MAGNESIUM SULFATE 1GM/100ML 100 ML IV SCH ×2 (11:48→12:40)
--- NOTE | 2019-06-17 12:00 | NUR ---
PROPOFOL TURNED OFF
--- NOTE | 2019-06-17 13:45 | NUR ---
JENI NIXON LANGUAGE INTERPRETER WITH [facility] CALLED FOR AN UPDATE ON PT
--- NOTE | 2019-06-17 15:34 | NUR ---
Respiratory note: PLACED PT ON CPAP TRIAL. CPAP TERMINATED AFTER 5 MINUTES DUE TO TACHYPNEA AND LOW TIDAL VOLUMES. PT NIF -21. RN MADE AWARE.
--- NOTE | 2019-06-17 17:00 | NUR ---
PT HAD SMALL LEAKAGE FROM FLEXI-SEAL. LINENS CHANGED
[2019-06-17 18:22] LABS: Magnesium 2.1 mg/dL (1.6-2.6); Phosphorus 2.4 mg/dL (2.5-4.90)
--- NOTE | 2019-06-17 19:05 | NUR ---
CLOSING NOTE SHIFT REPORT GIVEN AND CARE ENDORSED TO FAMILIA BHAT
--- NOTE | 2019-06-17 19:30 | NUR ---
OPEN NOTES Patient is awake, following simple commands, slightly restless. Patient was re-oriented. On IV Fentanyl at 20mcg/hr. Mittens at both hands. Right eye blind, both pupils sluggishly reactive to light. Remained intubated on AC mode, FIO2 30%. CPAP trial was done earlier but patient was not fully awake. Saturations 95%. Minimal secretions noted. VS stable. Physical assessment done-refer interventions. OGT to LIS - no output noted, Flexiseal tube in place with watery greenish output, Sierra catheter in placed with yellowish output with sediments. Repositioned patient. Oral care done.
[2019-06-17] MEDS: MIDAZOLAM DRIP 50 mg/50mL 50 ML IV SCH (20:15)
--- NOTE | 2019-06-17 21:00 | NUR ---
SEDATION SEDATION : FENTANYL AT 20 MCG/HR PATIENT IS AWAKE, FOLLOWING COMMANDS BUT FEELS UNCOMFORTABLE BECAUSE OF THE TUBE MITTENS IN PLACE AT BOTH HANDS INCREASED FENTANYL TO 50MCG/HR TO HELP PATIENT FEEL COMFORTABLE WILL CONTINUE TO MONITOR Addendum: 06/17/19 at 2149 by Elsi Estrella RN Amended: Links added.
[2019-06-17] MEDS: NOREPINEPHRINE 8 MG/250ML KIT 250 ML IV SCH (22:01)
[2019-06-17] MEDS: INSULIN LANTUS (GLARGINE) 1 /0.01ml (100units/ml) SC SCH (22:06)
[2019-06-17] MEDS: fentaNYL Drip 2500mCg/250mlNS 250 ML IV SCH (23:48)
[2019-06-18] VITALS (76 sets, daily range): BP systolic 113–178; BP diastolic 46–133
--- NOTE | 2019-06-18 00:02 | NUR ---
Patient bathe/linen change Patient feels warm despite Aircon adjusted. Temp 97.7F. Patient cleaned with CHG wipes. Skin integrity assessed for any changes. Linens changed. Patient repositioned for comfort.
--- NOTE | 2019-06-18 00:04 | NUR ---
CENTRAL LINE DRESSING Patient has a right IJ TLC. Dressing peeling off from the side Dressing removed, shave some facial hair near the insertion site. Site cleaned aseptically, covered with new dressing
[2019-06-18] MEDS: IPRATROPIUM BROM 0.5 MG/2.5ML INH SOL NEB SCH ×4 (00:14→18:44)
[2019-06-18] MEDS: ALBUTEROL SULF 2.5 MG/0.5ML(0.5%) NEB SOLN NEB SCH ×4 (00:14→18:44)
[2019-06-18] MEDS: SOD CHL 0.45% WITH 20MEQ KCL 1,000 ML IV SCH ×2 (00:23→12:55)
[2019-06-18] MEDS: ACCU-CHEK COMFORT CURVE STRIP VI SCH ×6 (00:27→22:00)
[2019-06-18] MEDS: InsuLIN REG 1unit/0.01ml Soln (100units/ml) SC SCH ×6 (00:30→22:00)
[2019-06-18 05:12] LABS: Basophils # (auto) 0.1 uL; Eosinophils # (auto) 0.3 uL; Hemoglobin 8.3 g/dL (13.5-17.5); Lymphocytes # (auto) 1.9 uL; Lymphocytes % (auto) 20.9 % (10.0-50.0)
[2019-06-18 05:15] LABS: Basophils % (auto) 0.6 % (0.0-2.0); Eosinophils % (auto) 3.7 % (0.0-7.0); Hematocrit 24.8 % (41.0-53.0); Mean Corpuscular Hemoglobin 28.3 pg (28.0-32.0); Mean Corpuscular Hgb Conc. 33.3 g/dL (32.0-36.0); Mean Corpuscular Volume 84.9 fL (80.0-100.0); Monocytes # (auto) 0.7 uL; Monocytes % (auto) 7.2 % (0.0-12.0); Neutrophils # (auto) 6.3 uL; Neutrophils % (auto) 67.6 % (37.0-80.0); Platelet Count (auto) 406 10^3/uL (140-450); Red Blood Cells 2.92 10^6/uL (4.5-5.90); Red Cell Distribution Width 18.9 % (11.8-14.3); White Blood Cell 9.3 10^3/uL (4.4-10.8)
[2019-06-18 05:27] LABS: Potassium 3.1 mmol/L (3.5-5.1)
[2019-06-18 05:33] LABS: Albumin 1.9 g/dL (3.4-5.0); BUN/Creatinine Ratio 18.3; Bilirubin, Total 0.5 mg/dL (0.2-1.0); Calcium 7.6 mg/dL (8.5-10.1); Magnesium 1.8 mg/dL (1.6-2.6); Phosphorus 2.4 mg/dL (2.5-4.90); Total Protein 6.5 g/dL (6.4-8.2)
--- NOTE | 2019-06-18 06:16 | NUR ---
ORLANDO SANTOS FOR LAB RESULTS
--- NOTE | 2019-06-18 06:45 | NUR ---
RE-ASSESS PATIENT IS AWAKE NOW, FOLLOWING COMMANDS, NOT RESTLESS. IV FENTANYL TURNED OFF NO COMPLAINS OF PAIN NOTED Addendum: 06/18/19 at 0659 by Elsi Estrella RN FOR CPAP TRIAL TODAY
--- NOTE | 2019-06-18 07:55 | NUR ---
PHONE CALL Received phone call from patients Laney, correct password provided and updated given.
--- NOTE | 2019-06-18 08:00 | NUR ---
OPENING NOTE Received patient on mechanical ventilator with no sedation. Patient alert/awake able to follow simple commands, positive gag/cough reflex, pupils reactive to light. Sinus rhythm in the 80's on bedside monitor, pulses palpable on upper/lower extremities with generalized edema throughout. OG tube checked and verified placement via air bolus connected to Low intermittent suction with no output. Abdomen large, soft, non tender, distended with bowel sounds present in all quadrants. Rectal tube in place and draining liquid brown stool. Sierra catheter draining to gravity yellow with orange sediment. Right IJ(TLC): good blood return and flushes easily with 0.45 NS with 20 of KCL infusing at 75ml/hr. Wound to the scarum with Optifoam in place. Call light within reach and bed at lowest position. SCD's on. Will continue to monitor patient closely.
[2019-06-18] MEDS: cefTRIAXone 1GM/50ML D5W 50 ML IV SCH (08:38)
[2019-06-18] MEDS: LINEZOLID 600MG/300ML 300 ML IV SCH (09:00)
--- NOTE | 2019-06-18 09:28 | NUR ---
MD Dr. Jimenez at bedside updated on patient condition with new orders given to RT's Nicole for CPAP. MD spoke to patient and patient regarding plan of care.
--- NOTE | 2019-06-18 09:29 | NUR ---
Respiratory note: PATIENT PLACED ON CPAP TRIAL PER DR GAYTAN ORDER. RN MADE AWARE. WEANING PARAMETERS ARE FOLLOWS: NIF 26.3 VC 1237 ML RSBI 37 PT IS AWAKE, ALERT, AND FOLLOWING COMMANDS.
--- NOTE | 2019-06-18 09:30 | NUR ---
RESPIRATORY RT's Nicole at bedside and changed patient mode to CPAP per MD orders. Patient tolerating well sating 99% able to follow simple commands, alert and awake. Will continue to monitor patient closely.
[2019-06-18] MEDS: PANTOPRAZOLE 40 MG/10 ML VIAL INJ IV SCH ×2 (10:24→21:50)
[2019-06-18] MEDS: POTASSIUM CHL 20MEQ/100ML 100 ML IV SCH ×2 (10:25→12:17)
[2019-06-18] MEDS: AZITHROMYCIN 500MG/ 250ML 250 ML IV SCH (10:25)
--- NOTE | 2019-06-18 10:25 | NUR ---
Respiratory note: RN AND FAMILY AT BEDSIDE. EXTUBATED PT PER DR GAYTAN ORDER. NO STRIDOR NOTED. PLACED ON 35% COOL MIST. NO RESP DISTRESS NOTED. WILL CONTINUE TO MONITOR ORDERED.
--- NOTE | 2019-06-18 10:25 | NUR ---
RESPIRATORY RT's Nicole at bedside to extubate patient. Patient tolerated well placed on cool mist at 30% sating at 97-99%, no stridor heard. Educated patient to not talk for a few hours and how to use yanker to suction if needed PRN. Patient nodded head in understanding.
[2019-06-18] MEDS ORDERED: POTASSIUM PHOSPHATE 22 MEQ in SODIUM CHL 0.9% 100 ML IV ONE (10:30)
--- NOTE | 2019-06-18 11:50 | NUR ---
Paged Dr. Cross regarding potassium phosphate spoke to CJ from MD's exchange, awaiting for call back.
--- NOTE | 2019-06-18 12:25 | NUR ---
MD Dr. Cross paged for a second time to clarify medication order awaiting for MD to call this RN back.
--- NOTE | 2019-06-18 12:40 | NUR ---
MD Dr. Cross called back and aware that patient has received 40meq of KCL and infusing 0.45 with 20KCL at 75ml. Clarified with MD if still want to infuse Potassium phosphate 22 mmol. states " Okay to give."
--- NOTE | 2019-06-18 13:35 | NUR ---
RESPIRATORY Patient placed on nasal cannula at 2 liters sating 98%. Will notify RT Tree of changes. Will continue to monitor patient closely.
--- NOTE | 2019-06-18 14:35 | NUR ---
MD Dr. Hyman at bedside updated on patient condition with new orders, MD to input into system. Will continue to monitor patient closely.
[2019-06-18] MEDS ORDERED: DEXTROSE (50%) 50ML SYRG IV PRN (14:45)
--- NOTE | 2019-06-18 15:47 | NUR ---
Nutrition Follow-up Notes Wt.: 129.0 kg today. Pt's just successfully extubated, on oxygen via nasal cannula, noted to start today on Clear Liquid diet. Est. Needs ABW 104 [id number] kcal (23-25 kcal/kgBW), 83-104 gms pro (0.8-1.0 gms/kgBW r/t elev RFT severe hypoalb wounds). Will continue to monitor pertinent labs and reassess nutrient need prn Labs: Gluc 112 H, Cl 112 H, K 3.1 L, BUN 22 H, Ca 7.6 L, AST 61 H, ALT 296 H, ALP 160 H, Alb 1.9 L. Skin: Fransico scale 14, mod risk, pt's intragluteal fold DTI per clinical engineering manager. Pls refer to latest customer service teller's notes for further details re: tx plans. GI: Pt had 200 ml stool output this morning per clinical engineering manager. PES: Altered nutrition related lab values r/t current/chronic medical condition aeb elev RFT severe hypoalb, hyperglycemia, hypocalcemia Obesity r/t hx food intake more than body requirement aeb 149% IBW, BMI 36.5 kg/m2 and increased body adiposity. Will continue to monitor PO intake, skin status, pertinent labs and weight trend. F/u in 2 to 3 days. Rec.: 1.) Advance gradually oral diet when medically appropriate. 2.) If Albumin continues trending down, consider Prostat 1 pkt BID. 3.) Consider daily MVI with minerals and Asc acid 500 mgs BID. 4.) Continue close supervision during meals. 5.) Refer pt to RD for further nutrition education and weight monitoring upon discharge. 6.) Continue current plan of care.
--- NOTE | 2019-06-18 19:05 | NUR ---
OPENING SHIFT RECEIVED REPORT FROM DAY SHIFT RN. ASSUMED CARE OF PATIENT. PATIENT IN BED WATCHING TV WITH NO SIGNS OR SYMPTOMS OF SOB, PAIN OR DISTRESS. CURRENTLY ON 2L 02 NASAL CANNULA, 02 SAT - 97%. RIGHT INTRAJUGULAR TLC - CLEAN/DRY/INTACT. MARTÍNEZ AND FLEXISEAL HUNG TO GRAVITY ON BED RAIL. REPOSITIONED FOR COMFORT. BED IN LOWEST POSITION, SIDE RAILS UP X2, CALL LIGHT WITHIN REACH. WILL CONTINUE TO MONITOR.
[2019-06-18] MEDS: INSULIN LANTUS (GLARGINE) 1 /0.01ml (100units/ml) SC SCH (21:50)
--- NOTE | 2019-06-18 23:20 | NUR ---
TROUBLE SLEEPING PATIENT COMPLAINING OF HAVING TROUBLE SLEEPING. PAGED DR. GASTELUM'S OFFICE. AWAITING CALL BACK.
--- NOTE | 2019-06-18 23:40 | NUR ---
DR. GASTELUM CALLED BACK AND GAVE ORDERS FOR RESTORIL 15MG PO PRN.
[2019-06-18] MEDS ORDERED: TEMAZEPAM 15 MG CAP PO PRN (23:45)
[2019-06-19] VITALS (18 sets, daily range): BP systolic 136–173; BP diastolic 62–82
[2019-06-19] MEDS: ALBUTEROL SULF 2.5 MG/0.5ML(0.5%) NEB SOLN NEB SCH ×4 (00:03→18:24)
[2019-06-19] MEDS: IPRATROPIUM BROM 0.5 MG/2.5ML INH SOL NEB SCH ×4 (00:03→18:24)
--- NOTE | 2019-06-19 00:15 | NUR ---
PM CARE PERFORMED PM CARE WITH CHG WIPES AND WASH CLOTHS TO THE FACE. PARTIAL LINEN AND GOWN CHANGED. REPOSITIONED FOR COMFORT. SKIN REASSESSED AT THIS TIME. BED IN LOWEST POSITION, SIDE RAILS UP X2, CALL LIGHT WITHIN REACH. WILL CONTINUE TO MONITOR.
--- NOTE | 2019-06-19 00:48 | NUR ---
SWALLOW ASSESSMENT ASSESSED PATIENTS ABILITY TO SWALLOW SIPS OF WATER AND ICE CHIPS. PATIENT TOLERATED WELL, MINIMAL COUGHING, NO SIGNS OF ASPIRATION. WILL CONTINUE TO MONITOR. PO RESTORIL GIVEN AFTER SWALLOW ASSESSMENT. Addendum: 06/19/19 at 0050 by DAMION FREEMAN RN RN * CORRECT TIME - 0005
[2019-06-19] MEDS: SOD CHL 0.45% WITH 20MEQ KCL 1,000 ML IV SCH ×2 (01:43→15:52)
[2019-06-19 04:28] LABS: Basophils # (auto) 0.1 uL; Eosinophils # (auto) 0.2 uL; Lymphocytes # (auto) 1.5 uL; Monocytes # (auto) 0.5 uL
[2019-06-19 04:38] LABS: Basophils % (auto) 0.7 % (0.0-2.0); Eosinophils % (auto) 2.7 % (0.0-7.0); Hematocrit 23.5 % (41.0-53.0); Lymphocytes % (auto) 16.8 % (10.0-50.0); Mean Corpuscular Hemoglobin 28.7 pg (28.0-32.0); Mean Corpuscular Hgb Conc. 34.1 g/dL (32.0-36.0); Monocytes % (auto) 5.5 % (0.0-12.0); Neutrophils # (auto) 6.6 uL; Neutrophils % (auto) 74.3 % (37.0-80.0); Platelet Count (auto) 386 10^3/uL (140-450); Red Cell Distribution Width 19.4 % (11.8-14.3); White Blood Cell 8.9 10^3/uL (4.4-10.8)
[2019-06-19 04:57] LABS: Potassium 3.1 mmol/L (3.5-5.1)
[2019-06-19 05:03] LABS: BUN/Creatinine Ratio 13.5; Calcium 7.9 mg/dL (8.5-10.1)
[2019-06-19 05:06] LABS: Bilirubin, Total 0.6 mg/dL (0.2-1.0); Total Protein 6.1 g/dL (6.4-8.2)
[2019-06-19] MEDS: InsuLIN REG 1unit/0.01ml Soln (100units/ml) SC SCH ×4 (07:00→21:35)
[2019-06-19] MEDS: ACCU-CHEK COMFORT CURVE STRIP VI SCH ×4 (07:00→21:35)
--- NOTE | 2019-06-19 07:08 | NUR ---
REPORT GIVEN TO DAY SHIFT RN.
--- NOTE | 2019-06-19 07:45 | NUR ---
OPEN Report received from Jovanny BHAT. Care initiated and initial assessment completed.
--- NOTE | 2019-06-19 08:00 | NUR ---
COMPLETE LINEN CHANGE/BM Patient had a small bowel movement surrounding Flexi-Seal. Washed patients with basin and flushed Flexi-Seal with 50CCs of water. Patient tolerated well. Complete linen change completed.
--- NOTE | 2019-06-19 09:00 | NUR ---
TOLERATED ICE CHIPS Patient is chewing and swallowing ice chips okay. No distress or choking.
--- NOTE | 2019-06-19 09:30 | NUR ---
FAMILY BEDSIDE Patient is in bed, daughter Cici, is at the bedside. Updated on patients status and plan of care.
[2019-06-19] MEDS: PANTOPRAZOLE 40 MG/10 ML VIAL INJ IV SCH ×2 (10:16→21:43)
[2019-06-19] MEDS: cefTRIAXone 1GM/50ML D5W 50 ML IV SCH (10:17)
[2019-06-19] MEDS: amLODIPine BESYLATE 5 MG TAB PO SCH (10:17)
[2019-06-19] MEDS: AZITHROMYCIN 500MG/ 250ML 250 ML IV SCH (10:17)
--- NOTE | 2019-06-19 10:30 | NUR ---
BEDSIDE Dr. Mccoy bedside assessing patient. New orders received.
[2019-06-19] MEDS ORDERED: POTASSIUM EFFERVESENT TAB 25 MEQ PO ONE (10:45)
--- NOTE | 2019-06-19 10:45 | NUR ---
PT BEDSIDE PT moved patient into the chair. Patient tolerated well. All lines intact.
--- NOTE | 2019-06-19 10:50 | NUR ---
BEDSIDE Dr. Cross bedside assessing patient. New orders received.
[2019-06-19] MEDS ORDERED: FUROSEMIDE 40 MG/4 ML VIAL IV ONE (11:15)
--- NOTE | 2019-06-19 11:30 | NUR ---
PATIENT BACK IN BED PT bedside, assisted patient back in bed per patients request. Patient tolerated well. All lines intact.
--- NOTE | 2019-06-19 17:00 | NUR ---
TWO IV INSERTIONS IV access obtained, via clean sterile technique by inserting 22 gauge catheter at the right wrist after 1 attempt. IV secured properly. No trauma to site. Patient tolerated procedure well. IV access obtained, via clean sterile technique by inserting 20 gauge catheter at the right arm after 1 attempt. IV secured properly. No trauma to site. Patient tolerated procedure well.
--- NOTE | 2019-06-19 18:00 | NUR ---
HANDOFF TRANSFER Report given to Clara BHAT.
--- NOTE | 2019-06-19 18:30 | NUR ---
PATIENT TRASNFERRED Patient moved to room 204 in bed. Patient stable.
--- NOTE | 2019-06-19 18:55 | NUR ---
PATIENT BROUGHT TO FLOOR, SIDE RAILS UP AND BED IN LOWEST POSITION, CALL LIGHT WITH IN REACH.
--- NOTE | 2019-06-19 19:23 | NUR ---
REPORT GIVEN TO RENÉE BHAT, [employer] WILL ASSUME CARE.
--- NOTE | 2019-06-19 19:32 | NUR ---
RECEIVED PATIENT FROM DAY SHIFT RN. PATIENT RESTING IN BED. NO S/S OF DISTRESS NOTED. DENIED PAIN FOR NOW. FAMILY AT BEDSIDE. RECTAL TUBE IN PLACE DRAINING GRAVITY. CLEANED PATIENT. AND PARTIAL LINEN CHANGED. PATIENT TOLERATED WELL. POC INSTRUCTED AND ENCOURAGED PATIENT TO CALL FOR GENERAL CLERK IF NEEDED. SPECIAL MATTRESS BED IN LOWEST POSITION WITH SIDE RAILS UP X 2. CALL KUMARI WITHIN REACH. ALARM ON. CONTINUE TO MONITOR FOR CHANGES Q1H AND PRN.
[2019-06-19] MEDS: INSULIN LANTUS (GLARGINE) 1 /0.01ml (100units/ml) SC SCH (21:43)
--- NOTE | 2019-06-19 21:43 | NUR ---
ACCU-CHECK, BS 103. NO COVERAGE.. CONTINUE TO MONITOR..
--- NOTE | 2019-06-19 23:28 | NUR ---
ASSISTED PATIENT FOR THE URINAL WITH CLEAR AND LIGHT SELENA URINE 450ML. CONTINUE TO MONITOR.
[2019-06-20] MEDS: IPRATROPIUM BROM 0.5 MG/2.5ML INH SOL NEB SCH ×4 (00:23→19:38)
[2019-06-20] MEDS: ALBUTEROL SULF 2.5 MG/0.5ML(0.5%) NEB SOLN NEB SCH ×4 (00:23→19:38)
[2019-06-20] MEDS: SOD CHL 0.45% WITH 20MEQ KCL 1,000 ML IV SCH (04:55)
--- NOTE | 2019-06-20 05:19 | NUR ---
CLEANED PATIENT. PARTIAL LINEN CHANGED. PATIENT TOLERATED WELL. REPOSITIONED PATIENT TO COMFORT. CONTINUE TO MONITOR.
--- NOTE | 2019-06-20 05:31 | NUR ---
RT PAGED FOR BREATHING TREATMENT. CONTINUE TO MONITOR.
[2019-06-20 05:32] LABS: Albumin 2.3 g/dL (3.4-5.0)
[2019-06-20 05:33] LABS: BUN/Creatinine Ratio 12.6
[2019-06-20 05:35] LABS: Potassium 2.7 mmol/L (3.5-5.1)
[2019-06-20 05:36] LABS: Bilirubin, Total 0.6 mg/dL (0.2-1.0); Total Protein 7.2 g/dL (6.4-8.2)
--- NOTE | 2019-06-20 05:45 | NUR ---
RT AT BEDSIDE.
--- NOTE | 2019-06-20 05:47 | NUR ---
Called/paged Dr. GASTELUM called re CRITICAL LAB VALUE PER RELIGIOUS HEALER SULEIMAN TREVOR, POTASSIUM 2.7 . Waiting for call back. Continue care.
[2019-06-20 05:54] VITALS: BP 145/78
[2019-06-20] MEDS: InsuLIN REG 1unit/0.01ml Soln (100units/ml) SC SCH ×4 (06:43→22:28)
[2019-06-20] MEDS: ACCU-CHEK COMFORT CURVE STRIP VI SCH ×4 (06:43→22:30)
--- NOTE | 2019-06-20 06:43 | NUR ---
ACCU-CHECK, BS 93. NO COVERAGE.. CONTINUE TO MONITOR..
--- NOTE | 2019-06-20 06:44 | NUR ---
Called/paged AGAIN Dr. GASTELUM called re CRITICAL LAB VALUE, POTASSIUM 2.7 . Waiting for call back. Continue care.
--- NOTE | 2019-06-20 07:15 | NUR ---
returned call Dr. ALCANTAR returned call, updated on patient status and reason for call, orders received. POTASSIUM 40 KLAUDIA IC OVER 4 HOURS. Continue care.
--- NOTE | 2019-06-20 07:20 | NUR ---
DAY SHIFT RN AWARE OF POTASSIUM ORDER AND WILL CARRY IT OUT.
[2019-06-20 09:00] VITALS: BP 159/79
[2019-06-20] MEDS: POTASSIUM CHL 20MEQ/100ML 100 ML IV SCH ×2 (09:28→11:39)
--- NOTE | 2019-06-20 09:30 | NUR ---
PT at bedside Patient up to chair. Patient instructed to call when ready to get back in to bed. Will continue to monitor.
[2019-06-20] MEDS: PANTOPRAZOLE 40 MG/10 ML VIAL INJ IV SCH (10:00)
[2019-06-20] MEDS ORDERED: POTASSIUM EFFERVESENT TAB 25 MEQ GT ONE (12:00)
[2019-06-20] MEDS: amLODIPine BESYLATE 5 MG TAB PO SCH (12:07)
--- NOTE | 2019-06-20 12:48 | NUR ---
SWALLOW EVALUATED. PATIENT HAS OWN TEETH, UPPER AND LOWER. PATIENT ABLE TO TOLERATE PUREE DIET TEXTURE WITH THIN LIQUIDS WITH NO OVERT SIGNS OR SYMPTOMS OF ASPIRATION. DIFFICULTY WITH BREATH SUPPORT. NURSING NOTIFIED.
[2019-06-20 13:00] VITALS: BP 161/77
--- NOTE | 2019-06-20 13:19 | NUR ---
Rectal tube collection bag leaking Patient cleaned, new bag applied. Full linen change completed. Patient tolerated well. Will continue to monitor Q1 hour and PRN.
--- NOTE | 2019-06-20 15:08 | NUR ---
Assessment Pt is a 74 yr old alert and oriented male. Pt talked very quietly so pts answered most of the questions for him. Prior to admit, pt lived with his . Kim Benoit, who is his contact at [phone]. Pt stated that he is ambulatory with the assistance of a walker. Pts cooks and cleans. Pt was independent with ADLs. Pt has a daughter that lives nearby that helps occasionally. Pt has acute kidney failure but is not on dialysis presently. Pt has in-home 02 and uses as needed. Pts primary is Dr. Eron Baldwin. Pts believes that he has an AD on file. Pt states that his transports him. Pts is concerned with his current weak state and is open to going to a SNF if need be, pt would prefer going to [facility], if possible. D/C planning and d/c needs will be further assessed upon medical clearance. Addendum: 06/20/19 at 1510 by MIKAYLA GAUTAM Amended: Links added.
[2019-06-20] MEDS ORDERED: POTASSIUM CHL 20MEQ/100ML 100 ML IV ONE (16:00)
[2019-06-20 17:00] VITALS: BP 142/78
--- NOTE | 2019-06-20 17:50 | NUR ---
Rectal Tube removed Per MD orders. Patient cleaned, full linen change completed. Patient instructed to call for assistance. Will continue to monitor Q1 hour and PRN.
--- NOTE | 2019-06-20 19:15 | NUR ---
Closing Note Report given to night supervisor RN. No signs or symptoms of distress noted at this time.
--- NOTE | 2019-06-20 19:59 | NUR ---
RECEIVED PATIENT FROM DAY SHIFT RN. PATIENT RESTING IN BED. NO S/S OF DISTRESS NOTED. DENIED PAIN FOR NOW. ASSISTED PATIENT TO BEDPAN, HAD BM. CLEANED PATIENT. PATIENT TOLERATED WELL. SCD ON. POC INSTRUCTED AND ENCOURAGED PATIENT TO CALL FOR SORT LINE WORKER IF NEEDED. SPECIAL MATTRESS BED IN LOWEST POSITION WITH SIDE RAILS UP X 2. CALL KUMARI WITHIN REACH. ALARM ON. CONTINUE TO MONITOR FOR CHANGES Q1H AND PRN.
[2019-06-20 22:00] VITALS: BP 146/69
--- NOTE | 2019-06-20 22:15 | NUR ---
PATIENT URINATED IN THE BED. CLEANED PATIENT. TOTAL LINEN CHANGED. PATIENT TOELRATED WELL. CONTINUE TO MONITOR.
[2019-06-20] MEDS: PANTOPRAZOLE 40 MG TAB PO SCH (22:27)
[2019-06-20] MEDS: INSULIN LANTUS (GLARGINE) 1 /0.01ml (100units/ml) SC SCH (22:29)
--- NOTE | 2019-06-20 22:40 | NUR ---
ACCU-CHECK, BS 156. INSULIN AND LANTUS GIVEN ORDERED. CONTINUE TO MONITOR.
[2019-06-20] MEDS ORDERED: MAGNESIUM SULFATE 1GM/100ML 200 ML IV ONE (22:55)
[2019-06-20] MEDS: MAGNESIUM SULFATE 1GM/100ML 100 ML IV SCH (23:06)
[2019-06-21] MEDS: IPRATROPIUM BROM 0.5 MG/2.5ML INH SOL NEB SCH ×4 (00:10→19:05)
[2019-06-21] MEDS: ALBUTEROL SULF 2.5 MG/0.5ML(0.5%) NEB SOLN NEB SCH ×4 (00:11→19:05)
[2019-06-21] MEDS: MAGNESIUM SULFATE 1GM/100ML 100 ML IV SCH (00:16)
--- NOTE | 2019-06-21 00:42 | NUR ---
PATIENT HAD BM. CLEANED PATIENT. PARTIAL LINEN CHANGED. PATIENT TOLERATED WELL. CONTINUE TO MONITOR.
--- NOTE | 2019-06-21 02:25 | NUR ---
PATIENT URINATED IN THE BED. CLEANED PATIENT. TOTAL LINEN CHANGED. PATIENT TOELRATED WELL. CONTINUE TO MONITOR.
--- NOTE | 2019-06-21 04:15 | NUR ---
PATIENT SLEEPING. NO S/S OF DISTRESS NOTED. CONTINUE CARE.
[2019-06-21 05:11] VITALS: BP 165/74
[2019-06-21 06:30] LABS: Calcium 8.3 mg/dL (8.5-10.1); Magnesium 1.9 mg/dL (1.6-2.6); Potassium 3.1 mmol/L (3.5-5.1)
[2019-06-21 06:32] LABS: BUN/Creatinine Ratio 12.6; Phosphorus 2.4 mg/dL (2.5-4.90)
[2019-06-21] MEDS: ACCU-CHEK COMFORT CURVE STRIP VI SCH ×4 (06:41→22:59)
[2019-06-21] MEDS: InsuLIN REG 1unit/0.01ml Soln (100units/ml) SC SCH ×4 (06:42→23:13)
--- NOTE | 2019-06-21 06:42 | NUR ---
ACCU-CHECK, BS 126. NO COVERAGE.. CONTINUE TO MONITOR..
--- NOTE | 2019-06-21 07:42 | NUR ---
Opening Patient in bed, awake, eating breakfast, bed in lowest position, call light within reach. No distress noted at this time. WIll f/u with morning assessment This patient is pending transfer to [facility] according to [facility] nurse. Will f/u with recent notes, and get up to speed on this. Will continue to monitor this patient.
[2019-06-21 09:00] VITALS: BP 136/73
[2019-06-21] MEDS: amLODIPine BESYLATE 5 MG TAB PO SCH (10:20)
[2019-06-21] MEDS: PANTOPRAZOLE 40 MG TAB PO SCH ×2 (10:20→22:58)
--- NOTE | 2019-06-21 11:01 | NUR ---
1050 06/21/19 I spoke with [facility] Assessment Specialist Jacinda Vo to let her know that [facility] is willing to accept this patient but needs an CATRACHITA-I let Jacinda Vo know that this is where patient is requesting to go. Jacinda Vo will work on the CATRACHITA and give me a call back.
[2019-06-21] MEDS ORDERED: POTASSIUM EFFERVESENT TAB 25 MEQ PO ONE (11:15)
[2019-06-21] MEDS ORDERED: POTASSIUM PHOSPHATE 44 MEQ in D5W 5% 250 ML IV ONE (11:15)
--- NOTE | 2019-06-21 11:45 | NUR ---
WOUND CARE NOTE: IN TO SEE PATIENT AT THIS TIME FOR WOUND REEVALUATION. PATIENT HAS CURRENT CARL SCORE OF 13. HE IS ABLE TO SELF TURN/REPOSITION SELF. PATIENT RESTING ON SPECIALTY AIR MATTRESS. HE HAS BEEN HAVING MULTIPLE BOUTS WITH INCONTINENT LOOSE STOOL. HE IS INCONTINENT OF STOOL AT THIS TIME. PERICARE GIVEN. SKIN IS BRIGHT RED WITH MASD TO SACRUM. SKIN IS BRIGHT RED, BLANCHES. UPPER MEDIAL SACRUM CONTINUES TO DISPLAY DARK PURPLE/MAROON DTI. SKIN IS INTACT. APPLIED OPTIFOAM GENTLE SACRAL DRESSING AT THIS TIME. NO OTHER SKIN INTEGRITY ISSUES SEEN AT THIS TIME. RECOMMEND: CONTINUATION WITH ALL WOUND CARE ORDERS PREVIOUSLY PRESCRIBED BY MD. WOUND CARE TEAM WILL CONTINUE TO MONITOR. Addendum: 06/21/19 at 1630 by Brigid Coffey RN Amended: Links added.
--- NOTE | 2019-06-21 12:21 | NUR ---
Nutrition Follow-up Notes Wt.: 113.7 kg based on bed scale as of yesterday. Pt's asleep, no immediate family member at bedside when rounded this morning. Pt's no signs of distress noted earlier, had swallow eval by ST yesterday, currently on Pureed diet with inadequate PO intake aeb 50% ave. consumed meals (x3) since yesterday. Est. Needs ABW 104 [id number] kcal (23-25 kcal/kgBW), 83-104 gms pro (0.8-1.0 gms/kgBW r/t elev RFT severe hypoalb wounds). Will continue to monitor pertinent labs and reassess nutrient need prn Labs: Gluc 133 H, Ca 8.3 L, K 3.1 L, Phos 2.4 L; AST 43 H, ALT 166 H, ALP 118 H, Alb 2.3 L. Skin: Fransico scale 14, mod risk, pt's intragluteal fold pressure ulcer per java support engineer. Pls refer to latest pantry goods worker's notes for further details re: tx plans. GI: Pt had ?10x BM this morning per java support engineer. PES: Altered nutrition related lab values r/t current/chronic medical condition aeb elev RFT severe hypoalb, hyperglycemia, hypocalcemia Obesity r/t hx food intake more than body requirement aeb 149% IBW, BMI 36.5 kg/m2 and increased body adiposity. Will continue to monitor PO intake, skin status, pertinent labs and weight trend. F/u in 3 to 5 days. Rec.: 1.) Consider Pureed Consistent Standard Carb: 60 gms/meal, Low Fat diet. 2.) If Albumin continues trending down, consider Prostat 1 pkt BID. 3.) Consider daily MVI with minerals and Asc acid 500 mgs BID. 4.) Continue close supervision during meals. 5.) Refer pt to RD for further nutrition education and weight monitoring upon discharge. 6.) Continue current plan of care.
--- NOTE | 2019-06-21 12:57 | NUR ---
paging dr preston per patient's nausea, and possible transfer
[2019-06-21 13:00] VITALS: BP 151/87
--- NOTE | 2019-06-21 13:08 | NUR ---
paging Marilou Malagon regarding patient's transfer to [facility], just to get update. Per MD Hyman, telephone ordered discharge/transfer to SNF at this time
[2019-06-21] MEDS ORDERED: METOCLOPRAMIDE HCL 5MG/ml INJ 2ml VIAL IV PRN (13:30)
--- NOTE | 2019-06-21 14:13 | NUR ---
1400 06/21/19 I received a call from [facility] Product Manager [employer] Jacinda Vo letting me know that patient's stay is authorized through today, but that patient needs to be discharged to [facility] because that's who they are contracted with, that their [place] patients are not contracted with [facility]-and they don't know how long the CATRACHITA would take. I let her know that patient chose [facility] from the list of facilities that she had given us yesterday to reach out to ([facility], [facility] and [facility]).
[2019-06-21 17:00] VITALS: BP 146/69
[2019-06-21] MEDS ORDERED: LOPERAMIDE HCL 2 MG CAP PO PRN (17:00)
--- NOTE | 2019-06-21 17:06 | NUR ---
D/C Planning Per consult for SNF placement for physical therapy. Contacted all three facilities and faxed medical records [facility] and [facility]. Per Ad from [facility] ph: ) Fax:) Pt has been accepted to room [address] Quinones. Advised Marilou for authorization for SNF and transportation however is still pending from insurance. Addendum: 06/21/19 at 1714 by TATO JENSEN Amended: Links added.
[2019-06-21 17:28] VITALS: BP 151/82
--- NOTE | 2019-06-21 18:00 | NUR ---
ss calling confirmed placement, bed, and transport for this patient. Will work on this transfer.
[2019-06-21 18:07] VITALS: BP 136/73
--- NOTE | 2019-06-21 19:08 | NUR ---
RT NOTE PT WAS SEEN BY RT FOR HHN TX. PT TOLERATES WELL VIA MASK. NO ADVERSE REACTION NOTED. CONT ORDERED. POX 97% Addendum: 06/21/19 at 1910 by Payton Ortiz RT Amended: Links added.
--- NOTE | 2019-06-21 19:30 | NUR ---
Opening Shift Note Assumed care of patient. Patient awake and alert x2. No S/S of distress/SOB or pain. Upon patient assessment, lungs clear and bowel sounds present, IV present in right forearm 20G and right hand 22G both patent, intact with no s/s of pain or discomfort. Patient currently laying in semi-fowlers position comfortably with oxygen at 3.5lpm NC. Instructed on POC and to call for assist PRN, will continue to monitor for changes. Bed locked in lowest position and bed rails up x3. Call light within reach.
--- NOTE | 2019-06-21 20:00 | NUR ---
[facility] called. ETA of 2 hours before arrival to transport patient
[2019-06-21] MEDS: INSULIN LANTUS (GLARGINE) 1 /0.01ml (100units/ml) SC SCH (23:13)
--- NOTE | 2019-06-21 23:20 | NUR ---
Discharged/Transport Patient left with [facility] transport to [facility]. Discharge instructions given as ordered. All questions and concerns addressed. Patient verbalized understanding. IV removed with catheter intact, pressure dressing applied. Medication reconciliation form completed and copy given to patient. Telemetry unit returned to ICU. Report given to EMT team at 2305. Patient transported by stretcher with all personal belongings. No distress noted at time of departure.
== END 2019-06-21 23:49 | DRG 207 ==
LOC: ER 16:39 → EDBD 16:39 → TELE 16:40 → ICU WEST 06-13 13:04 → TELE-CENTR 06-19 18:56
PROVIDERS: ADMIT Nurse Practitioner Acute Care; ATTEND Internal Medicine
PROC: 02HV33Z Insertion of Infusion Device into Superior Vena Cava, Percutaneous Approach (ICD-10-PCS; 2019-06-12)
PROC: 5A1955Z Respiratory Ventilation, Greater than 96 Consecutive Hours (ICD-10-PCS; principal; 2019-06-13)
PROC: 30233K1 Transfusion of Nonautologous Frozen Plasma into Peripheral Vein, Percutaneous Approach (ICD-10-PCS; 2019-06-13)
PROC: 30233N1 Transfusion of Nonautologous Red Blood Cells into Peripheral Vein, Percutaneous Approach (ICD-10-PCS; 2019-06-13)
PROC: 0BH17EZ Insertion of Endotracheal Airway into Trachea, Via Natural or Artificial Opening (ICD-10-PCS; 2019-06-13)
PROC: 0DJ08ZZ Inspection of Upper Intestinal Tract, Via Natural or Artificial Opening Endoscopic (ICD-10-PCS; 2019-06-14)
PROC: 0DJ08ZZ Inspection of Upper Intestinal Tract, Via Natural or Artificial Opening Endoscopic (ICD-10-PCS; 2019-06-16)
PROC: 0DBP8ZZ Excision of Rectum, Via Natural or Artificial Opening Endoscopic (ICD-10-PCS; 2019-06-16)
DX: J96.01 Acute respiratory failure with hypoxia (principal); N17.0 Acute kidney failure with tubular necrosis; E43 Unspecified severe protein-calorie malnutrition; J18.9 Pneumonia, unspecified organism; R57.8 Other shock; K28.4 Chronic or unspecified gastrojejunal ulcer with hemorrhage; R65.11 Systemic inflammatory response syndrome (SIRS) of non-infectious origin with acute organ dysfunction; D68.9 Coagulation defect, unspecified; J90 Pleural effusion, not elsewhere classified; D62 Acute posthemorrhagic anemia; I50.32 Chronic diastolic (congestive) heart failure; J44.0 Chronic obstructive pulmonary disease with (acute) lower respiratory infection; J44.1 Chronic obstructive pulmonary disease with (acute) exacerbation; D64.9 Anemia, unspecified; E87.5 Hyperkalemia; E11.65 Type 2 diabetes mellitus with hyperglycemia; E11.51 Type 2 diabetes mellitus with diabetic peripheral angiopathy without gangrene; E83.39 Other disorders of phosphorus metabolism; L89.159 Pressure ulcer of sacral region, unspecified stage; Z66 Do not resuscitate; I11.0 Hypertensive heart disease with heart failure; I25.10 Atherosclerotic heart disease of native coronary artery without angina pectoris; E87.6 Hypokalemia; K62.1 Rectal polyp; Z79.84 Long term (current) use of oral hypoglycemic drugs; Z82.0 Family history of epilepsy and other diseases of the nervous system; Z82.49 Family history of ischemic heart disease and other diseases of the circulatory system; Z83.3 Family history of diabetes mellitus; Z87.891 Personal history of nicotine dependence; Z90.49 Acquired absence of other specified parts of digestive tract; Z68.32 Body mass index [BMI] 32.0-32.9, adult; Z87.11 Personal history of peptic ulcer disease
CPT/HCPCS: 31500; 36415; 36556; 36600; 43235; 45385; 71045; 71250; 74176; 80048; 80053; 80202; 81001; 82570; 82805; 82962; 83036; 83605; 83735; 83880; 84100; 84132; 84300; 84484; 85007; 85014; 85018; 85025; 85027; 85610; 85730; 86677; 86850; 86900; 86901; 86920; 87040; 87081; 92610; 94002; 94003; 94640; 94644; 96365; 96367; 96375; 97110; 97163; 97530; 99291; A4618; C9113; G0378; J0330; J0610; J0696; J1815; J2250; J2704; J3480; J7060